=== PATIENT | female | born 1960 | race Caucasian/White ===

== ENCOUNTER 2017-09-29 18:49 | Inpatient (IN) | payer OTHER ==
[~2017-09-29] VITALS: Ht 167.6 cm; Wt 87.1 kg
--- NOTE | ~2017-09-29 | HC ---
[facility] [place], [place] [address] CONSULTATION Name: ANNETTE EHARD Room #: 349-I [facility] IN .R.#: [id number] Admission: 09/29/17 Attend Phys: Eze Crawley MD Discharge: 10/01/17 Date of : 58 Report #: [id number] THIS REPORT FOR: //name// CC: Cynthia Stokes DATE OF SERVICE: 09/30/2017 HISTORY OF PRESENT ILLNESS: This is a 56-year-old female patient who was evaluated by me to determine any neurological etiology for the patient's dizziness. She indicates that she has a longstanding headache. This headache is generalized. They are present every day. Light does bother her. She does not know anything which bring it on or make it better. She does describe it as a severe headache. They had started spontaneously without any trauma. REVIEW OF SYSTEMS: Indicate she does have a history of anxiety. She takes Xanax for that. During the present episode, she started having ataxia, dizziness, vision disturbances, symptoms are pretty nonspecific. She also takes hydrocodone. There is some poorly defined history that this patient may have had some falls also. She is complaining of multiple nonspecific symptoms and they do include visual disturbances. She talks very softly. She denies any cardiac or respiratory symptoms. She had prior surgery on her ankle. She denies any nausea, vomiting or symptoms. There is no constitutional or new allergic symptoms. She complained of generalized weakness and more like difficulty walking. She denies any endocrine or throat symptoms. PAST MEDICAL HISTORY: Positive for headache. FAMILY HISTORY: Negative for early age stroke. SOCIAL HISTORY: She denies the use of alcohol or tobacco. She is not on any hormones and her last period was more than 10 years ago. PHYSICAL EXAMINATION: Indicates she talks very softly. She is alert, responsive. Her speech, concentration, fund of knowledge and memory is at her baseline. Cranial nerve examination 2-12, the best I can tell is unremarkable. She is very light sensitive and she did not cooperate with the fundus examination. Her strength, sensation, reflexes and tones are symmetrical. There is no meningeal sign. There is no carotid bruit. She is a well-developed individual who does not have any dysmorphic features of eyes, ears and face. Her vision and hearing looks adequate. Heart looks unremarkable and there is no respiratory difficulty or rhonchi. Her pulses are palpable. Blood pressure is 133/64, respiration is 20, pulse is 106, temperature is 98.6. LABORATORY DATA: White count is normal. Potassium is trace low at 3.3, magnesium is 2.5. [place] [address] CONSULTATION Name: ANNETTE HEARD Room #: 349-I [facility] IN M.R.#: [id number] Admission: 09/29/17 Attend Phys: Eze Crawley MD Discharge: 10/01/17 Date of : 58 Report #: [id number] IMPRESSION: It is not clear whether the patient's symptom is because of some posterior fossa etiology or because of her psychiatric issue. With these symptoms, we need to exclude the possibility of posterior fossa etiology. For that, I will suggest doing an MRI and MRA. Her TSH is also abnormal and I will defer to you any further workup we would like to do. RECOMMENDATION: I discussed her options with her. We will go ahead and do an MRI. If MRI is normal, then I do not think neurologically can do much. TSH is slightly abnormal and may have to be worked up further by yourself and we might do some more blood workup in this patient, which I ordered. Thank you very much for this referral and if you have any question, please feel free to contact me. <ELECTRONICALLY SIGNED> By: Derick Bruce MD 10/03/17 [id number] Derick Bruce MD /nt
--- NOTE | ~2017-09-29 | EKG ---
[place] [address] [facility] [place] [address] ELECTROCARDIOGRAM REPORT Name: ANNETTE HEARD Room #: 349-I ADM IN M.R.#: [id number] Admission: 09/29/17 Attend Phys: Julia Stokes Discharge: Date of : 58 Report #: [id number] THIS REPORT FOR: //name// [facility] ED Test Date: 2017-09-29 Test Time: 19:12:19 Pat Name: ANNETTE HEARD Department: Room: 349 Gender: F Electric Lineman: JITENDRA : 1960 Requested By: Windy Larson Order Number: [id number] MD: Erwin Dumont Measurements Intervals [place] Rate: 89 P: 55 MS: 172 QRS: -30 QRSD: 104 T: 1 QT: 393 QTc: 479 Interpretive Statements Sinus rhythm Low voltage, precordial leads Left ventricular hypertrophy Baseline wander in lead(s) V3 No previous ECG available for comparison Electronically Signed On 09-30-2017 23:34:47 [employer] by Erwin Dumont [email or web address] <ELECTRONICALLY SIGNED> By: Erwin Dumont MD 09/30/17 2334 11 11 Erwin Dumont MD /ZACHARY
--- NOTE | ~2017-09-29 | 2DMMODE ---
[facility] [place] [address] 2 D/M-MODE ECHOCARDIOGRAM Name: ANNETTE HEARD Room #: 349-I ADM IN [facility]#: [id number] Admission: 09/29/17 Attend Phys: Eze Crawley, Discharge: Date of : 58 Date of Service: 10/01/17 1441 Report #: [id number] THIS REPORT FOR: //name// APPROVED REPORT Study performed: 10/01/2017 13:38:13 EXAM: Comprehensive 2D, Doppler, and color-flow Echocardiogram Patient Location: Bedside Status: routine BSA: 1.94 HR: 74 bpm BP: 134/81 mmHg Other Information Study Quality: Adequate Indications CVA/TIA Dizziness and Vertigo Hypertension/HDD Echo Enhancing Agent Indication: Rule out Shunt Agent(s) / Amount(s) Used: Agitated Saline 7 cc 2D Dimensions RVDd: 31.31 mm LVEF(%): 61.99 (>50%) IVSd: 10.49 (7-11mm) LVOT Diam: 22.25 (18-24mm) LVDd: 45.56 mm PWd: 10.28 (7-11mm) Ascending Ao: 34.57 (22-36mm) LVDs: 30.41 (25-40mm) Aortic Root: 32.20 mm IVC: 19.00 mm Nino's LVEF: 61.99 % Volumes Left Atrial Volume (Systole) Single Plane 4CH: 41.62 mL Single Plane 2CH: 46.64 mL LA ESV Index: 26.00 mL/m2 Aortic Valve AoV Peak Daryl.: 1.20 m/s AO Peak Gr.: 5.80 mmHg LVOT Max P.41 mmHg LVOT Max V: 1.05 m/s [facility] [place] [address] 2 D/M-MODE ECHOCARDIOGRAM Name: ANNETTE HEARD Room #: 349-I ADM IN M.R.#: [id number] Admission: 09/29/17 Attend Phys: Eze Crawley, Discharge: Date of : 58 Date of Service: 10/01/17 1441 Report #: [id number] Vmax: 3.39 cm2 Mitral Valve E/A Ratio: 1.1 MV Decel. Time: 223.55 ms MV E Max Daryl.: 0.94 m/s MV A Daryl.: 0.85 m/s MV PHT: 64.83 ms IVRT: 87.66 ms Pulmonary Valve PV Peak Daryl.: 0.82 m/s PV Peak Gr.: 2.70 mmHg Pulmonary Vein P Vein S: 0.43 m/s P Vein A: 0.24 m/s P Vein D: 0.26 m/s P Vein A Dur.: 83.0 msec P Vein S/D Ratio: 1.65 Left Ventricle The left ventricle is normal size. There is normal left ventricular wall thickness. The left ventricular systolic function is normal. The left ventricular ejection fraction is within the normal range. LVEF is 60-65%. Right Ventricle The right ventricle is normal size. The right ventricular systolic function is normal. Atria The left atrium size is normal. The right atrium size is normal. Aortic Valve The aortic valve is normal in structure. No aortic regurgitation is present. There is no aortic valvular stenosis. Mitral Valve The mitral valve is normal in structure. Trace to mild mitral regurgitation. No evidence of mitral valve stenosis. Tricuspid Valve The tricuspid valve is normal in structure. There is trace tricuspid regurgitation. There is no pulmonary hypertension. Pulmonic Valve The pulmonary valve is normal in structure[place] [address] 2 D/M-MODE ECHOCARDIOGRAM Name: ANNETTE HEARD Room #: 349-I ADM IN [facility]#: [id number] Admission: 09/29/17 Attend Phys: Eze Crawley, Discharge: Date of : 58 Date of Service: 10/01/17 1441 Report #: [id number] valvular regurgitation. Great Vessels The aortic root is normal in size. IVC is normal in size and collapses >50% with inspiration. Pericardium There is no pericardial effusion. <Conclusion> The left ventricle is normal size. The left ventricular systolic function is normal. The right ventricle is normal size. The left atrium size is normal. The aortic valve is normal in structure. Trace to mild mitral regurgitation. There is trace tricuspid regurgitation. There is no pericardial effusion. <ELECTRONICALLY SIGNED> By: Abdulaziz Vazquez MD 10/01/17 144 [id number] 144 Abdulaziz Vazquez MD /INF
[2017-09-29 18:56] VITALS: BP 159/111
[2017-09-29] MEDS ORDERED: HYDROCODONE-AP1 EAC6 PO (19:34)
[2017-09-29] MEDS ORDERED: XANAX 0.5 MG0.5 MG PO (19:34)
[2017-09-29 19:53] LABS: URINE BILIRUBIN NEGATIVE (Negative); URINE BLOOD 1+ (Negative); URINE COLOR YELLOW; URINE GLUCOSE-RANDOM* NEGATIVE (Negative); URINE KETONES NEGATIVE (Negative); URINE NITRITE NEGATIVE (Negative); URINE PROTEIN (DIPSTICK) NEGATIVE (Negative); URINE UROBILINOGEN 0.2 E.U./dl (0.2-1.0)
[2017-09-29 19:57] LABS: ABSOLUTE NEUTROPHILS 7.4 thou/uL (1.4-8.2); BASOPHILS 0.6 % (0.0-2.0); EOSINOPHILS 0.8 % (0.0-3.0); HEMATOCRIT 39.2 % (37.0-47.0); HEMOGLOBIN 13.4 gm/dL (12.0-15.0); LYMPHOCYTES 14.3 % (24.0-44.0); MANUAL DIFF NO; MCH 31.5 pg (26.0-34.0); MCHC 34.1 g/dL (28.0-37.0); MCV 92.3 fL (80.0-100.0); MONOCYTES 6.7 % (1.0-8.0); PLATELET COUNT 205 thou/uL (150-400); POLYS 77.6 % (36.0-66.0); RBC 4.25 mil/uL (4.20-5.00); RDW 12.8 % (10.5-14.5); WBC 9.6 thou/uL (4.0-11.0)
[2017-09-29 19:59] LABS: ANION GAP 7 mmol/L (7-16); BUN 9 mg/dL (7-18); CALCIUM 9.5 mg/dL (8.5-10.1); CHLORIDE 102 mmol/L (98-107); CO2 31 mmol/L (21-32); CREATININE 0.7 mg/dL (0.6-1.0); GLUCOSE 109 mg/dL (74-106); POTASSIUM 3.4 mmol/L (3.5-5.1); SODIUM 140 mmol/L (136-145)
[2017-09-29 20:01] LABS: AMP/METHAMP Negative (Negative); BARBITURATES Negative (Negative); BENZODIAZEPINES POSITIVE (Negative); COCAINE Negative (Negative); METHADONE Negative (Negative); OPIATES POSITIVE (Negative); PCP Negative (Negative)
[2017-09-29 20:03] LABS: INR 1.1; PROTIME 11.4 Seconds (9.3-11.4)
[2017-09-29 20:05] LABS: ACETAMINOPHEN < 2 ug/mL (10-30); MAGNESIUM 1.7 mg/dL (1.8-2.4)
[2017-09-29 20:06] LABS: SQUAMOUS 4-10 Moderate /LPF (0-3)
[2017-09-29 20:07] LABS: BACTERIA 1-9 Few /HPF (None Seen); CASTS None Seen /LPF (None Seen); CRYSTALS None Seen /LPF (None Seen); URINE RBC 3-10 Few /HPF (0-2); URINE WBC 0-5 Rare /HPF (0-5)
[2017-09-29 20:08] LABS: ALBUMIN 4.1 g/dL (3.4-5.0); ALKALINE PHOSPHATASE 46 U/L (46-116); SGOT 18 U/L (15-37); SGPT 24 U/L (30-65); TOTAL BILIRUBIN 0.3 mg/dL (<0.1-1.0); TOTAL PROTEIN 7.3 g/dL (6.4-8.2); TROPONIN-I < 0.04 ng/mL (<0.06)
[2017-09-29 21:05] VITALS: BP 179/97
[2017-09-29 21:17] VITALS: BP 196/88
[2017-09-29 21:37] VITALS: BP 158/85
[2017-09-29] MEDS ORDERED: TRAZODONE HCL100 MG PO (22:31)
[2017-09-30 00:15] VITALS: BP 155/90
[2017-09-30 03:40] VITALS: BP 173/74
[2017-09-30 03:52] LABS: CHOLESTEROL 178 mg/dL (<200); HDL CHOLESTEROL 64 mg/dL (>40); LDL CHOLESTEROL 99 mg/dL (<100); TC:HDL 2.8 Ratio (Not establshd); TRIGLYCERIDE 76 mg/dL (<150); VLDL 15 mg/dL (<40)
[2017-09-30 04:01] LABS: SERUM ASSESSMENT Clear
[2017-09-30 07:09] VITALS: BP 133/64
[2017-09-30 07:58] LABS: CALCIUM 9.2 mg/dL (8.5-10.1); CREATININE 0.6 mg/dL (0.6-1.0); MAGNESIUM 2.5 mg/dL (1.8-2.4); POTASSIUM 3.3 mmol/L (3.5-5.1)
[2017-09-30 12:00] VITALS: BP 161/73
[2017-09-30 15:06] LABS: GLYCOHEMOGLOBIN (HGB A1C) 5.2 % (4.8-5.6)
[2017-09-30 15:33] VITALS: BP 166/95
[2017-09-30 20:00] VITALS: BP 167/95
[2017-10-01 04:00] VITALS: BP 141/91
[2017-10-01 07:24] VITALS: BP 142/82
[2017-10-01 09:52] LABS: CREATININE 0.7 mg/dL (0.6-1.0); MAGNESIUM 2.2 mg/dL (1.8-2.4); POTASSIUM 3.5 mmol/L (3.5-5.1)
[2017-10-01 12:00] VITALS: BP 134/81
[2017-10-01] MEDS ORDERED: TOPAMAX 25 MG T25 M1 PO (16:09)
[2017-10-01 16:19] VITALS: BP 134/81
== END 2017-10-01 16:59 | disposition home or self-care (01) | DRG 102 ==
LOC: ER 18:49 → 3W 20:37 → EROBS 20:37 → 3W 21:38
PROVIDERS: Internal Medicine; Nurse Practitioner Acute Care; Nurse Practitioner Family
DX: G43.909 Migraine, unspecified, not intractable, without status migrainosus (principal); G93.40 Encephalopathy, unspecified; F11.20 Opioid dependence, uncomplicated; E87.6 Hypokalemia; I16.0 Hypertensive urgency; G89.29 Other chronic pain; M25.559 Pain in unspecified hip; F41.9 Anxiety disorder, unspecified; E83.42 Hypomagnesemia; Z60.2 Problems related to living alone; Z80.0 Family history of malignant neoplasm of digestive organs; Z81.8 Family history of other mental and behavioral disorders; Z87.891 Personal history of nicotine dependence
CPT/HCPCS: 10879